=== PATIENT | male | born 1990 | race American Indian/Alaskan Native ===

== ENCOUNTER 2021-04-07 23:17 | Emergency (ER) | payer SELFPAY ==
[2021-04-08 03:06] LABS: Bilirubin,Urine NEG (Negative); Blood,Urine NEG (Negative); Color,Urine Straw (Yellow); Protein,Urine <15 mg/dL mg/dL (Negative); Urobilinogen,Urine < 2.0 mg/dL (<2.0)
--- NOTE | 2021-04-08 07:41 | Emergency Department Report ---
ED General Adult HPI - General Chief complaint: Skin/Abscess/Foreign Body Stated complaint: LUMP IN NECK,PENIS DISCHARGE Time Seen by Provider: 04/08/21 07:30 Source: patient Mode of arrival: Ambulatory Limitations: No Limitations - History of Present Illness Initial comments: 31-year-old [place] male [facility] emerge department complaining few day history of right tonsillar lymphadenopathy a associated that is not associated with sore throat or ear pain. Reports no dysphagia or odynophagia no voice change, no fevers, chills, sweats, nausea, vomiting, chest pain, palpitation. Is also more concerned of having some pain irritation and burning and suspicion of STD electively evaluated for such. Reports no abdominal pain no testicular pain or swelling, no fevers, chills, sweats Quality: dull Consistency: constant Improves with: none Worsens with: none Associated Symptoms: denies other symptoms Treatments Prior to Arrival: none - Related Data Previous Rx's Medication Instructions Recorded Last Taken Type Diclofenac Sodium 75 mg PO BID #30 tablet. 04/19/15 Unknown Rx methOCARBAMOL [Robaxin TAB] 500 mg PO BID PRN #20 tab 04/19/15 Unknown Rx Cyclobenzaprine [Flexeril] 10 mg PO TID PRN #15 tablet 02/25/16 Unknown Rx HYDROcodone/APAP 5-325 [[place] 1 each PO Q6HR PRN #10 tablet 06/30/18 Unknown Rx 5-325 mg TAB] Ibuprofen [Motrin 800 MG tab] 800 mg PO Q8HR PRN #20 tablet 06/30/18 Unknown Rx Azithromycin 250 mg PO ONCE #4 tablet 10/09/18 Unknown Rx Azithromycin [Zithromax TAB] 1,000 mg PO ONCE #2 tablet 04/08/21 Unknown Rx ceFIXime [Cefixime] 800 mg PO ONCE #2 capsule 04/08/21 Unknown Rx metroNIDAZOLE [Flagyl] 500 mg PO ONCE #4 tab 04/08/21 Unknown Rx Allergies Allergy/AdvReac Type Severity Reaction Status Date / Time No Known Allergies Allergy Verified 10/09/18 11:04 ED Review of Systems ROS: Stated complaint: LUMP IN NECK,PENIS DISCHARGE Other details as noted in HPI Comment: All other systems reviewed and negative ED Past Medical Hx - Past Medical History Hx Sickle Cell Disease: Yes - Surgical History Additional Surgical History: ORAL SURGERY - Social History Smoking Status: Unknown if ever smoked Substance Use Type: None - Medications Home Medications: Home Medications Medication Instructions Recorded Confirmed Last Taken Type Diclofenac Sodium 75 mg PO BID #30 tablet. 04/19/15 Unknown Rx methOCARBAMOL [Robaxin TAB] 500 mg PO BID PRN #20 tab 04/19/15 Unknown Rx Cyclobenzaprine [Flexeril] 10 mg PO TID PRN #15 tablet 02/25/16 Unknown Rx HYDROcodone/APAP 5-325 [[place] 1 each PO Q6HR PRN #10 tablet 06/30/18 Unknown Rx 5-325 mg TAB] Ibuprofen [Motrin 800 MG tab] 800 mg PO Q8HR PRN #20 tablet 06/30/18 Unknown Rx Azithromycin 250 mg PO ONCE #4 tablet 10/09/18 Unknown Rx Azithromycin [Zithromax TAB] 1,000 mg PO ONCE #2 tablet 04/08/21 Unknown Rx ceFIXime [Cefixime] 800 mg PO ONCE #2 capsule 04/08/21 Unknown Rx metroNIDAZOLE [Flagyl] 500 mg PO ONCE #4 tab 04/08/21 Unknown Rx ED Physical Exam - General Limitations: No Limitations General appearance: alert, in no apparent distress - Head Head exam: Present: atraumatic, normocephalic - Eye Eye exam: Present: normal appearance - ENT ENT exam: Present: mucous membranes moist - Neck Neck exam: Present: normal inspection - Respiratory Respiratory exam: Present: normal lung sounds bilaterally. Absent: respiratory distress - Cardiovascular Cardiovascular Exam: Present: regular rate, normal rhythm. Absent: systolic murmur, diastolic murmur, rubs, gallop - GI/Abdominal GI/Abdominal exam: Present: soft, normal bowel sounds - Rectal Rectal exam: Present: deferred - Extremities Exam Extremities exam: Present: normal inspection - Back Exam Back exam: Present: normal inspection - Neurological Exam Neurological exam: Present: alert, oriented X3 - Psychiatric Psychiatric exam: Present: normal affect, normal mood - Skin Skin exam: Present: warm, dry, intact, normal color. Absent: rash ED Course Vital Signs 04/08/21 08:35 Temperature 101 F H Pulse Rate 100 H Respiratory 16 Rate Blood Pressure 103/76 [Left] O2 Sat by Pulse 100 Oximetry Critical care attestation.: If time is entered above; I have spent that time in minutes in the direct care of this critically ill patient, excluding procedure time. ED Disposition Clinical Impression: Lymphadenopathy, Pharyngitis, Possible exposure to STD Disposition: HOME / SELF CARE / HOMELESS Is pt being admited?: No Does the pt Need Aspirin: No Condition: Stable Instructions: Syphilis, Genital Warts, Gonorrhea Test, Upper Respiratory Infection, Adult, Pharyngitis, Lymphadenopathy, Safe Sex, Syphilis Test, Sore Throat Prescriptions: ceFIXime [Cefixime] 800 mg PO ONCE #2 capsule metroNIDAZOLE [Flagyl] 500 mg PO ONCE #4 tab Azithromycin [Zithromax TAB] 1,000 mg PO ONCE #2 tablet Referrals: PRIMARY CARE, [Primary Care Provider] - 3-5 Days [facility] [Outside] - 3-5 Days
[2021-04-08 08:36] VITALS: BP 103/76
== END 2021-04-08 09:05 | disposition home or self-care (01) ==
LOC: ED 23:17
DX: L02.11 Cutaneous abscess of neck (principal); R30.0 Dysuria; R36.9 Urethral discharge, unspecified
CPT/HCPCS: 81001; 99283

== ENCOUNTER 2021-10-11 15:30 | Emergency (ER) | payer SELFPAY | END 2021-10-12 09:32 | disposition left against medical advice (07) | LOC: ED 15:30 | DX: R10.9 Unspecified abdominal pain (principal); Z53.21 Procedure and treatment not carried out due to patient leaving prior to being seen by health care provider ==